=== PATIENT | female | born 1955 | race Caucasian/White ===

== ENCOUNTER 2021-02-26 17:30 | Inpatient (IN) | payer MEDICARE ==
[~2021-02-26] VITALS: Ht 180.3 cm; Wt 71.2 kg
[2021-02-26] MEDS ORDERED: OLAN5TAB3 SL (17:55)
[2021-02-26] MEDS ORDERED: NICO1PAT44 TP (17:55)
[2021-02-26] MEDS ORDERED: OLAN10TA3 IM (17:55)
[2021-02-26] MEDS ORDERED: LORA-259 PO (17:55)
[2021-02-26] MEDS ORDERED: ACET-73 PO (17:55)
[2021-02-26] MEDS ORDERED: NICO2GUM9 BC (17:55)
[2021-02-26] MEDS ORDERED: IBUP-1953 PO (17:55)
[2021-02-26] MEDS ORDERED: OLAN10TA3 PO (17:55)
[2021-02-26] MEDS ORDERED: ONDA4TAB11 PO (17:55)
--- NOTE | 2021-02-26 18:10 | NUR ---
Pt is medically cleared by Dr Umanzor for admissio to [facility].
[2021-02-26 18:45] VITALS: BP 120/62
[2021-02-26] MEDS ORDERED: MAGNESIUM HYDROXIDE 30 ML LIQUID UDC PO PRN (18:45)
[2021-02-26] MEDS ORDERED: LORAZEPAM 0.5 MG TABLET PO PRN ×2 (18:45→22:45)
[2021-02-26] MEDS ORDERED: TEMAZEPAM 7.5 MG CAPSULE PO PRN (18:45)
[2021-02-26] MEDS ORDERED: MAG HYDROX/AL HYDROX/SIMETH 30 ML LIQUID UDC PO PRN (18:45)
--- NOTE | 2021-02-26 18:57 | NUR ---
PT ARRIVED TO UNIT ON W/C ACCOMPANIED BY ER NURSE. ALL PAPERWORK AND BELONGINGS HANDED OVER. UPON FACE TO FACE EVALUATION, PT IS CALM AND COOPERATIVE. ABLE TO MAKE ALL NEEDS KNOWN. DENIES PAIN OR DISCOMFORT AT THIS TIME. AOX2. PT CAN BE EASILY IRRITABLE AND REQUIRES REDIRECTION. NO AGGRESSIVE OR COMBATIVE BEHAVIOR NOTED AT THIS TIME. IN NO ACUTE DISTRESS.
--- NOTE | 2021-02-26 19:01 | NUR ---
PT WAS TRANSFERD TO [facility] ROOM #[id number]. REPORT WAS GIVEN TO [facility] RN.
[2021-02-26] MEDS ORDERED: ACETAMINOPHEN ES 500 MG TABLET PO SCH (19:15)
[2021-02-26] MEDS ORDERED: NICOTINE 14 MG/24HR PATCH TD SCH (19:15)
[2021-02-26] MEDS ORDERED: ONDANSETRON ODT 4 MG TAB.RAPDIS SL PRN (19:15)
[2021-02-26] MEDS ORDERED: IBUPROFEN 400 MG TABLET PO SCH (19:15)
[2021-02-26 20:21] VITALS: BP 95/62
[2021-02-26] MEDS: HALOPERIDOL 2 MG TABLET PO SCH (22:11)
[2021-02-27] MEDS ORDERED: IBUPROFEN 600 MG TABLET PO PRN (06:00)
[2021-02-27] MEDS ORDERED: LORAZEPAM 1 MG TABLET PO PRN (06:00)
[2021-02-27 07:30] VITALS: BP 105/66
[2021-02-27] MEDS: HALOPERIDOL 2 MG TABLET PO SCH ×4 (09:15→18:16)
--- NOTE | 2021-02-27 14:38 | NUR ---
SW Initial Discharge Note: Patient currently resides at [address] , [place] [address]; ([phone]). Patient would want to return back home upon discharge. This SW contacted patient's friend Pete ([phone]) but was unavailable at this time. This SW will work with the MD and treatment team to help coordinate proper discharge.
--- NOTE | 2021-02-27 14:38 | NUR ---
Firearms Report: Bicycle Assembler completed and submitted a [employer] firearms report for [address] grave disability certification. A copy of report has been placed in patient chart.
--- NOTE | 2021-02-27 14:38 | NUR ---
SW Family Contact: This SW contacted patient's friend Pete ([phone]) but was unavailable at this time.
[2021-02-27 15:07] VITALS: BP 121/62
--- NOTE | 2021-02-27 15:09 | NUR ---
SW Family Contact: This SW contacted patient's friend Pete ([phone]) who stated that upon discharge pt can come back home. He reported that pt has been in and out of [facility] and that she has been at nursing facilities. She mentioned that she has a brother named Chente ([phone]) and that he might be the conservator. Pete reported that he takes care of pt at home.
--- NOTE | 2021-02-27 15:10 | NUR ---
SW Family Contact: This SW contacted patient's brother Chente ([phone]) to discuss treatment and discharge plan and was unavailable at this time. SW will attempt again.
--- NOTE | 2021-02-27 15:21 | NUR ---
[facility] Individual Therapy: yarn dry room worker met with patient for brief counseling to help address patients presenting problem disorganized thought content. Patient appeared disorganized and confused. She was unable to have a proper conversation. She kept stating to this SW "I don't know why I am here and what my name is". SW unable to conduct therapy at this time.
--- NOTE | 2021-02-27 16:04 | NUR ---
SW Note: This SW attempted to have pt sign her treatment plan. Pt appeared hostile and refused to sign. Pt threw this writers clipboard on her bed and refused to sign.
--- NOTE | 2021-02-27 17:16 | NUR ---
Patient is alert and oriented to name only. She requires education about reason for admission, place, and date. Patient is anxious, restless, has poor boundaries with other patients and staff, and is intrusive with others. patient requires constant redirection and reality orientation. patient denies SI/HI, denies AH/VH, she appears internally preoccupied. Patient is able to provide for self care and ADL's independently. She is able to ambulate independently. Patient has refused Haldol PO. Patient states that she is refusing because her personal psychiatrist has not prescribed that medication and "I don't need Haldol". Patient provided with education about importance of taking medication as prescribed but she continues to refuse.
--- NOTE | 2021-02-27 18:54 | NUR ---
After speaking face to face with the psychiatrist, patient agreed to take Haldol 2 mg PO. Patient provided with education about medication, risks and benefits. Patient able to verbalize understanding.
[2021-02-27 20:30] VITALS: BP 100/63
[2021-02-28 07:30] VITALS: BP 104/62
--- NOTE | 2021-02-28 07:30 | NUR ---
Received patient walking in hallway. Patient is alert and oriented times 1. No sign of distress noted at this time. Denies any suicidal ideation or hallucinations. She is at times forgetful and highly suspicious. Safety measures implemented. Will continue to monitor.
[2021-02-28] MEDS: HALOPERIDOL 2 MG TABLET PO SCH ×4 (09:00→21:24)
[2021-02-28] MEDS: ENSURE ENLIVE (VAN) 240 ML LIQUID PO SCH (09:26)
--- NOTE | 2021-02-28 09:30 | NUR ---
Patient is refusing to take her medication. She states that she does not want any medication to alter her mood.
[2021-02-28 15:27] VITALS: BP 119/56
--- NOTE | 2021-02-28 18:32 | NUR ---
Patient is in room sitting on the side of bed. Patient is refusing medication. Safety measures are in place. Will endorse to the oncoming nurse.
--- NOTE | 2021-02-28 19:00 | NUR ---
RECEIVED PATIENT IN THE DAYROOM. SHE IS NOTED A/O X 2 HYPERVERBAL. SHE IS NOTED WITH IMPAIRED INSIGHT AND JUDGMENT TO THE REASON FOR HIS ADMISSION TO [facility]. SHE STATED, "I AM HERE BECAUSE I LET MY TWO DOGS OUT OF THE HOUSE". PATIENT DENIED SI/HI/VH/AH. SHE IS ABLE TO VERBALLY CFS. V/S STABLE. PT IS REASSURED FOR HER SAFETY. SAFETY AND FALL PRECAUTION IN PLACE. WILL CONTINUE TO MONITOR.
[2021-02-28 20:32] VITALS: BP 126/51
--- NOTE | 2021-02-28 21:45 | NUR ---
Patient approached nursing staff and stated, "where is my medication". this film writer advise patient that she has Haldol, that she previously refused earlier. Pt stated, "I can take it now". patient was given Haldol 2mg (she refused the 5pm dose earlier) patient noted less Irritable less hyperverbal. will continue to monitor.
[2021-03-01 06:41] LABS: EOSINOPHILS # (AUTO) 0.1 K/uL (0.0-0.7); EOSINOPHILS % (AUTO) 1.7 % (0.0-7.0); HEMATOCRIT 34.9 % (31.2-41.9); HEMOGLOBIN 11.9 g/dL (10.9-14.3); LYMPHOCYTES # (AUTO) 1.3 K/uL (20.0-40.0); LYMPHOCYTES % (AUTO) 27.9 % (20.5-51.5); MEAN CORPUSCULAR HEMOGLOBIN 33.1 uug (24.7-32.8); MEAN CORPUSCULAR HGB CONC 34 g/dL (32.3-35.6); MEAN CORPUSCULAR VOLUME 96.5 fL (75.5-95.3); MONOCYTES # (AUTO) 0.5 K/uL (2.0-10.0); MONOCYTES % (AUTO) 10.9 % (0.0-11.0); NEUTROPHILS # (AUTO) 2.8 K/uL (1.8-8.9); NEUTROPHILS % (AUTO) 58.5 % (38.5-71.5); PLATELET COUNT (AUTO) 169 K/uL (179-408); RED BLOOD CELL COUNT(AUTO) 3.61 MIL/uL (3.63-4.92); WHITE BLOOD COUNT (AUTO) 4.8 K/uL (3.8-11.8)
[2021-03-01 07:01] LABS: THYROID STIMULATING HORMONE 1.269 mIU/mL (0.358-3.740)
[2021-03-01 07:17] LABS: BILIRUBIN,TOTAL 0.5 mg/dL (0.2-1.0); CREATININE 0.6 mg/dL (0.6-1.3); MAGNESIUM 1.8 mg/dL (1.8-2.4); PHOSPHOROUS 3.2 mg/dL (2.5-4.9); POTASSIUM 3.9 mmol/L (3.5-5.1)
[2021-03-01 07:30] VITALS: BP 113/62
[2021-03-01] MEDS: HALOPERIDOL 2 MG TABLET PO SCH ×3 (10:09→18:10)
[2021-03-01] MEDS: ENSURE ENLIVE (VAN) 240 ML LIQUID PO SCH (10:14)
--- NOTE | 2021-03-01 14:23 | NUR ---
[facility] Individual Therapy: hydroponics worker met with patient for brief counseling to help address patients presenting problem paranoid thought content. Patient appeared paranoid and delusional stating that "the mattress on my bed is not fitted, can you give me a screw driver's education instructor so I can fix it". Patient was fixated on her bed and was unable to have a proper conversation at this time due to her paranoia. [facility] unable to conduct therapy at this time.
--- NOTE | 2021-03-01 14:29 | NUR ---
[facility]: This SW contacted [facility] ([phone]) and spoke with Norman who stated patient is not in the system and is not conserved.
--- NOTE | 2021-03-01 14:30 | NUR ---
SW Family Contact: This SW contacted patient's friend Pete ([phone]) and left a detailed voicemail that the number he had provided for patient's brother Chente ([phone]) is incorrect and if he could call this SW to verify the correct number.
--- NOTE | 2021-03-01 15:19 | NUR ---
SW Family Contact: Patient's friend Pete ([phone]) contacted back this SW and confirmed that pt's brother Chente ([phone]) phone number is correct.
--- NOTE | 2021-03-01 15:20 | NUR ---
SW Family Contact: This SW contacted patient's brother Chente ([phone]) and left a detailed voicemail in regards to patient's discharge plan and treatment plan.
[2021-03-01 16:00] VITALS: BP 107/71
[2021-03-01 16:03] LABS: *BILIRUBIN,URIN NEGATIVE (NEGATIVE); *BLOOD, URINE NEGATIVE (NEGATIVE); *CLARITY,URINE CLEAR (CLEAR); *COLOR,URINE YELLOW (YELLOW); *KETONES,URINE NEGATIVE (NEGATIVE); *UROBILINOGEN,URINE 0.2 E.U./dl (NORMAL); LEUKOCYTE ESTERASE ,URINE NEGATIVE (NEGATIVE); NITRITE, URINE NEGATIVE (NEGATIVE); PH,URINE 5.5 (5.0-8.0); UGLUCOSE NEGATIVE (NEGATIVE)
[2021-03-01 20:53] VITALS: BP 108/50
[2021-03-02 07:30] VITALS: BP 96/58
[2021-03-02] MEDS: ENSURE ENLIVE (VAN) 240 ML LIQUID PO SCH (09:00)
[2021-03-02] MEDS: HALOPERIDOL 2 MG TABLET PO SCH ×3 (09:28→16:17)
--- NOTE | 2021-03-02 11:48 | NUR ---
Court Hearing: Patient's court hearing for [id number] was today and it was upheld for GD.
--- NOTE | 2021-03-02 14:10 | NUR ---
[facility] Coordination of Care: Patient will follow up with Dr. Buckley (cephalometric technician) located at [address], [place] [address]; ([phone]) on March 21 at 3:30PM scheduled by Oneil anderson. Patient will follow up with (Psychiatrist) Dr. Omer located at [address], [place] [address]; ([phone]) on March 15 at 3PM scheduled by Thea anderson.
--- NOTE | 2021-03-02 16:27 | NUR ---
Gps/Sofa Back Upholsterer- Patient claimed had loose stools this pm, not observed, instructed patient not to flush toilet commode , denies stomach cramps. Continue to monitor further complaints
[2021-03-02 16:40] VITALS: BP 113/54
[2021-03-02 20:16] VITALS: BP 111/56
[2021-03-02] MEDS: QUETIAPINE FUMARATE 25 MG TABLET PO SCH (23:21)
[2021-03-02] MEDS: ACETAMINOPHEN 325 MG TABLET PO PRN (23:22)
--- NOTE | 2021-03-03 03:31 | NUR ---
PATIENT ALERT AWAKE, STAYED IN HER ROOM MOST OF THE TIME. PATIENT SEEN BY DR HARPER WITH NEW ORDER. PATIENT AMBULATE TO THE HALLWAYS TWICE ON THIS SHIFT. PATIENT HAS NO COMPLAIN OF LBM AT THIS TIME. PATIENT CALM AND COOPERATIVE WITH MEDICATIONS, CONT TO MONITOR.
--- NOTE | 2021-03-03 06:45 | NUR ---
PATIENT ALERT REFUSED SHOWER, PATIENT HAS EPISODE OF AGITATION AND CURSING STAFF. REDIRECT BEAHVIOR AND WITH HELP.
[2021-03-03 07:30] VITALS: BP 111/65
[2021-03-03] MEDS: HALOPERIDOL 2 MG TABLET PO SCH ×3 (08:35→16:34)
[2021-03-03] MEDS: ENSURE ENLIVE (VAN) 240 ML LIQUID PO SCH (09:00)
--- NOTE | 2021-03-03 14:28 | NUR ---
[facility] Individual Therapy: tray room worker met with patient for brief counseling to help address patients presenting problem paranoid thought content. Patient appeared to be withdrawn in her room. Patient expressed that she was tired and did not want to have therapy at this time. [facility] unable to conduct therapy at this time.
[2021-03-03 16:50] VITALS: BP 119/74
[2021-03-03 20:14] VITALS: BP 138/52
[2021-03-03] MEDS: BENZTROPINE MESYLATE 1 MG TABLET PO SCH (20:51)
[2021-03-03] MEDS: QUETIAPINE FUMARATE 25 MG TABLET PO SCH (20:52)
[2021-03-03] MEDS ORDERED: risperiDONE 0.5 MG TABLET PO SCH (21:00)
[2021-03-03] MEDS ORDERED: DIVALPROEX 500 MG TABLET.DR PO SCH (21:00)
[2021-03-03] MEDS ORDERED: BENZTROPINE MESYLATE 0.5 MG TABLET PO SCH (21:00)
--- NOTE | 2021-03-04 06:12 | NUR ---
Pt asleep at this time, denies pain during the shift. Compliant with meds, cooperative with care. No change in LOC. Stayed in her most of the time. Safety precautions in place. Frequent checks done.
[2021-03-04 08:28] VITALS: BP 97/56
[2021-03-04] MEDS: BENZTROPINE MESYLATE 1 MG TABLET PO SCH ×2 (08:35→21:03)
[2021-03-04] MEDS: ENSURE ENLIVE (VAN) 240 ML LIQUID PO SCH (08:35)
[2021-03-04] MEDS: HALOPERIDOL 2 MG TABLET PO SCH ×3 (08:35→16:04)
[2021-03-04 16:18] VITALS: BP 104/54
[2021-03-04 20:00] VITALS: BP 97/64
[2021-03-04] MEDS: QUETIAPINE FUMARATE 25 MG TABLET PO SCH (21:03)
[2021-03-05 07:30] VITALS: BP 103/75
[2021-03-05] MEDS: HALOPERIDOL 2 MG TABLET PO SCH ×3 (08:34→17:40)
[2021-03-05] MEDS: BENZTROPINE MESYLATE 1 MG TABLET PO SCH ×2 (08:34→20:37)
[2021-03-05] MEDS: ENSURE ENLIVE (VAN) 240 ML LIQUID PO SCH (08:35)
[2021-03-05 15:14] VITALS: BP 109/59
[2021-03-05] MEDS: ACETAMINOPHEN 325 MG TABLET PO PRN (18:48)
[2021-03-05 20:18] VITALS: BP 120/67
[2021-03-05] MEDS: QUETIAPINE FUMARATE 25 MG TABLET PO SCH (20:37)
--- NOTE | 2021-03-06 06:48 | NUR ---
Received Pt in another Pt's room. Pt became argumentative and oppositional when asked to socialize in the common areas. Pt accused staff of "changing the rules just to mess with me." Paranoid and suspicious of staff, she demanded to use the phone so she could "report all of the abuses going on here." Pt was given the phone and shown to her room. Pt was compliant with her meds, but remained easily agitated and irritable. Denies SI/HI, verbally contracts for safety.
[2021-03-06 07:30] VITALS: BP 96/60
[2021-03-06] MEDS: ENSURE ENLIVE (VAN) 240 ML LIQUID PO SCH (08:35)
[2021-03-06] MEDS: BENZTROPINE MESYLATE 1 MG TABLET PO SCH ×2 (08:35→20:17)
[2021-03-06] MEDS: HALOPERIDOL 2 MG TABLET PO SCH ×3 (08:35→17:12)
[2021-03-06 15:17] VITALS: BP 96/54
[2021-03-06] MEDS: QUETIAPINE FUMARATE 25 MG TABLET PO SCH (20:17)
[2021-03-06 20:22] VITALS: BP 116/63
--- NOTE | 2021-03-07 06:27 | NUR ---
Patient resting in their room, slept 5.30 hours. Compliant with medications and plan of care. Can be intrusive at times during medication administration of other patients assisting in care. Safety measures in place and q15 min visual checks remain intact.
[2021-03-07] MEDS: BENZTROPINE MESYLATE 1 MG TABLET PO SCH (08:16)
[2021-03-07] MEDS: HALOPERIDOL 2 MG TABLET PO SCH ×2 (08:16→12:24)
[2021-03-07] MEDS: ENSURE ENLIVE (VAN) 240 ML LIQUID PO SCH (08:17)
[2021-03-07 08:30] VITALS: BP 110/64
--- NOTE | 2021-03-07 08:30 | NUR ---
SW Discharge Note: Patient will be discharged home to [address], [place] [address]; ([phone]). Patients friend Pete ([phone]) will fruit picker patient at 2PM. Patients friend Pete ([phone]) is aware and agreeable to patients discharge. This SW contacted patients brother Chente ([phone]) and left a voicemail about pts discharge. Upon discharge, patient appear to be calm, cooperative and happy to be going home. Patient denies suicidal and homicidal ideation. Patient denies visual/auditory hallucinations. Patient will follow up with Dr. Buckley (hotel director) located at [address], [place] [address]; ([phone]) on March 21 at 3:30PM scheduled by Oneil jaimesyouth care professional. Patient will follow up with (Psychiatrist) Dr. Omer located at [address], [place] [address]; ([phone]) on March 15 at 3PM scheduled by Teha youth care professional. Patient presented with euthymic and congruent mood.
[2021-03-07] MEDS: ACETAMINOPHEN 325 MG TABLET PO PRN (15:28)
--- NOTE | 2021-03-07 16:00 | NUR ---
GPS: Nursing Notes: Discharge Notes: Patient is awake and responding to her name, cooperative with nursing care, compliant with her medications, following staff directions, denies SI/HI, denies AH/VH, denies pain or discomfort, denies SOB, picked by patient's friend - Pete , took all her belongings with her, discharge home at [address] , [place] [address]. Instructions and prescription given to patient. Patient will follow up with Dr. Buckley (zigzag elastic attacher) located at [address] [facility] [place] [address]; ([phone]) on March 21 at 3:30PM scheduled by Oneil anderson. Patient will follow up with (Psychiatrist) Dr. Omer located at [address] [place] [address]; ([phone]) on March 15 at 3PM scheduled by Thea anderson.
== END 2021-03-07 16:00 | disposition home or self-care (01) | DRG 885 ==
LOC: ER 17:32 → GPS 18:15
PROVIDERS: ADMIT Psychiatry & Neurology Psychiatry; ATTEND Nurse Practitioner Acute Care
DX: F20.0 Paranoid schizophrenia (principal); F29 Unspecified psychosis not due to a substance or known physiological condition; Z73.6 Limitation of activities due to disability; M19.90 Unspecified osteoarthritis, unspecified site; F31.9 Bipolar disorder, unspecified; F17.210 Nicotine dependence, cigarettes, uncomplicated; Z79.899 Other long term (current) drug therapy
CPT/HCPCS: 36415; 71045; 83735; 84100; 84443; 85025; 87086; 93005